=== PATIENT | male | born 1955 | race Caucasian/White ===

== ENCOUNTER 2018-03-10 09:21 | Emergency (ER) | payer BC ==
[2018-03-10 10:04] VITALS: BP 117/76
--- NOTE | 2018-03-10 10:49 | UC ---
FLU HPI - HPI Summary HPI Summary: Patient states starting on Radha he had head congestion and body aches and right or chills. Patient states he sat process fireplace with a slight chronic could not get warm. Patient states since this time he has a persistent cough with some clear sputum. Patient states he has a little bit of sinus pressure. Patient states overall he feels like is getting better but concerned about the cough becomes effective sleep. + myalgias no documented fever Patient 's also ill that she is improved. Patient to get the flu vaccine this year. Patient is not immunocompromised. Patient denies nausea vomiting. Patient's been drinking plenty of fluids but decreased appetite. No difficulty with urination or changes to his bowels. Patient's medications reviewed this visit. - History of Current Complaint Chief Complaint: UCGeneralIllness Stated Complaint: COUGH, BODY ACHES, CHILLS Time Seen by Provider: 03/10/18 10:37 Hx Obtained From: Patient Onset/Duration: Gradual Onset Severity Currently: Mild Severity Initially: Mild Pain Intensity: 2 Pain Scale Used: 0-10 Numeric - Allergy/Home Medications Allergies/Adverse Reactions: Allergies Allergy/AdvReac Type Severity Reaction Status Date / Time No Known Allergies Allergy Verified 03/10/18 10:01 Home Medications: Home Medications Atorvastatin* [Lipitor*] 20 mg PO DAILY 03/10/18 [History Confirmed 03/10/18] PMH/Surg Hx/FS Hx/Imm Hx Previously Healthy: Yes - Surgical History Surgical History: None - Family History Known Family History: Positive: Non-Contributory - Social History Lives: With Family Alcohol Use: Rare Substance Use Type: None Smoking Status (MU): Never Smoked Tobacco Review of Systems All Other Systems Reviewed And Are Negative: Yes Constitutional: Positive: Chills, Fatigue ENT: Positive: Nasal Discharge, Sinus Congestion, Sinus Pain/Tenderness Respiratory: Positive: Cough Physical Exam - Summary Physical Exam Summary: Vital Signs Reviewed: Yes A+Ox3, no distress, tired appearing Eyes: Conjunctiva Clear, RAPHAEL. EOM intact and full ENT: Hearing grossly normal TM x 2 clear, turbinates inflammed, boggy + PND, mmoist, uvula midline, no exudate, no erythema Neck: Positive: Supple Respiratory: Positive: No respiratory distress, No accessory muscle use + CTA throughout no w/r Cardiovascular: RRR nl s1, s2 no m/r CBT <2 sec abd soft + BS nt/nd no guarding, no distension Musculoskeletal Exam: CALABRESE x 4 without difficulty Strength Intact, ROM Intact Neurological: Positive: Alert, + sensation throughout Psychological: Positive: Normal Response To Family Skin: Positive: no rash, no ecchymosis Triage Information Reviewed: Yes Vital Signs: Initial Vital Signs Temp 98 F 03/10/18 09:58 Pulse 57 03/10/18 09:58 Resp 14 03/10/18 09:58 BP 117/76 03/10/18 09:58 Pulse Ox 99 03/10/18 09:58 Flu Course/Dx - Course Course Of Treatment: Patient presents to urgent care with 6 days of progressive congestion cough chills and myalgias. Patient states she's feeling better but still having a cough is keeping up and night. Patient has taken over-the- counter cough and cold medication with little improvement. On exam vital signs are stable. Patient appears tired but otherwise non-concerning exam. Patient does have some bogginess to his turbinates. Patient is influenza A positive. Reviewed with patient out of the window for Tamiflu. Reviewed secretion precaution. Motrin/Tylenol. Continue with hydration. Recommend patient continue with humidified air as he has a wood-burning stove. Strict return precautions. Patient comfortable in agreement with plan. Patient declined any notes. We'll give patient Robitussin with codeine to use as needed. Patient denies any opiate history. I-STAT was checked. Patient aware is an opiate narcotic in his house. - Differential Dx/Diagnosis Provider Diagnosis: Influenza Discharge - Sign-Out/Discharge Documenting (check all that apply): Patient Departure All imaging exams completed and their final reports reviewed: No Studies - Discharge Plan Condition: Stable Disposition: HOME Prescriptions: Fluticasone NASAL SPRAY 50MCG* [Flonase NASAL SPRAY 50MCG*] 2 spray BOTH NARES DAILY #1 btl guaiFENesin/CODIEN 100MG-10MG* [Robitussin AC 100Mg-10Mg*] 10 ml PO TID #100 ml MDD 30 Patient Education Materials: Influenza (ED) Referrals: Nieves Quiñonez MD [Primary Care Provider] - Additional Instructions: - Stay well hydrated. Drink plenty of non-alcoholic, non-caffinated beverages. - Okay to take tylenol every 6 hours in addition to your Aleve. Take with food. Do NOT take for more than 4-5 days. - These infections are spread by secretions - do NOT share eating or drinking utensils - clean items you share with other people such as cell phones, computer mouse, TV remote, computer tablets,etc. Once you start to feel better, change your toothbrush and your pillowcase. - get plenty of restful sleep - humidify the air in the room where you sleep - boil water, run a hot steam shower, vaporizer, cups of water by heat register - okay to take over the counter decongestant and cough medication - consider Claritin-d, cristi-D, Zyrtec-D - use nasal spray as instructed - you have been given a prescription for robitussin with codeine - this is a narcotic - do NOT drive, operate machinery or drink alcohol while taking this medication - contact your doctor or return with questions or concerns - Billing Disposition and Condition Condition: STABLE Disposition: Home
== END 2018-03-10 11:07 | disposition home or self-care (01) ==
LOC: UCCORT 09:21
DX: J09.X2 Influenza due to identified novel influenza A virus with other respiratory manifestations (principal)
CPT/HCPCS: 99202; G0463